=== PATIENT | male | born 1960 | race African-American/Black ===

== ENCOUNTER → 2017-02-12 | Outpatient (CLI) | payer OTHER ==
[~2017-02-12] MED LIST: 'PARAFON FORTE500 M1 PO; CITALOPRAM HYDR20 MG PO; FLEXERIL10 MG PO; GLYBURIDE5 MG PO; JANUMET 500 MG-1 TA1 PO; LISINOPRIL-HCTZ 20-2; LOW DOSE ASPIRI81 MG PO; MEDROL DOSEPAK4 MG PO; MOTRIN800 MG PO; NAPROSYN500 MG PO; NICOTINE T21 MG/24 H TD; PEN-VEE K500 MG PO; PRAVASTATIN SOD40 MG PO; PREDNISONE10 MG PO; ULTRAM50 MG PO
[2017-02-12 08:20] LABS: BASO % 0.5 % (0.0-1.0); EOS # 0.1 10*3/uL (0.0-0.4); EOS % 1.1 % (1.0-4.0); HEMATOCRIT 42.9 % (42.0-52.0); HEMOGLOBIN 13.7 g/dl (14.0-18.0); LYMPH # 2.3 10*3/uL (1.3-4.4); LYMPH % 41.2 % (27.0-41.0); MEAN CELL VOLUME 86.7 fl (80.0-94.0); MEAN CORPUSCULAR HGB 27.7 pg (27.0-31.0); MEAN CORPUSCULAR HGB CONC 31.9 g/dl (33.0-37.0); MEAN PLATELET VOLUME 10.8 fl (9.6-12.3); MONO # 0.5 10*3/uL (0.1-1.0); MONO % 9.5 % (3.0-9.0); NEUT # 2.6 10*3/uL (2.3-7.9); NEUT % 47.5 % (47.0-73.0); PLATELET COUNT AUTOMATED 196 10*3/uL (130-400); RED BLOOD COUNT 4.95 10*6/uL (4.50-5.90); RED CELL DISTRI WIDTH 13.6 % (0-14.5); WHITE BLOOD COUNT 5.5 10*3/uL (4.8-10.8)
[2017-02-12 08:54] LABS: ALBUMIN 3.6 gm/dl (3.1-4.5); BUN 21 mg/dl (7-24); CARBON DIOXIDE 23 mmol/L (21-32); CHLORIDE 108 mmol/L (98-107); GLUCOSE 134 mg/dL (65-99); POTASSIUM 4.2 mmol/L (3.5-5.1); SODIUM 142 mmol/L (136-145)
[2017-02-12 09:01] LABS: ALKALINE PHOSPHATASE 68 U/L (45-117); BILIRUBIN, TOTAL 0.4 mg/dl (0.2-1.0); CHOLESTEROL 122 mg/dL (<200); EST GLOM FILT AFRICAN AMERICAN > 60 ml/min; FREE T4 0.94 ng/dl (0.76-1.46); HDL CHOLESTEROL 43 mg/dl (40-60); LDL CHOLESTEROL 57 mg/dL (9-159); SGOT/AST 20 IU/L (3-35); SGPT/ALT 35 U/L (12-78); THYROID STIM HORMONE (HS) 0.664 uIU/ml (0.358-4.75); TOTAL PROTEIN 7.1 gm/dL (6.4-8.2); TRIGLYCERIDES 110 mg/dl (<150); VLDL CHOLESTEROL 22 mg/dL (6-40)
== END | disposition home or self-care (01) ==
LOC: LAB 07:23
PROVIDERS: Family Medicine
DX: E78.5 Hyperlipidemia, unspecified (principal); E55.9 Vitamin D deficiency, unspecified; I10 Essential (primary) hypertension

== ENCOUNTER → 2017-06-18 | Outpatient (CLI) | payer OTHER | END | disposition home or self-care (01) | LOC: RAD 12:22 | DX: M16.11 Unilateral primary osteoarthritis, right hip (principal) ==

== ENCOUNTER 2017-09-25 16:04 | Emergency (ER) | payer OTHER ==
[~2017-09-25] VITALS: Ht 180.3 cm; Wt 84.8 kg
[2017-09-25] MEDS ORDERED: Motrin,Rufen800 MG PO (16:30)
[2017-09-25] MEDS ORDERED: SEPTDS PO (16:30)
[2017-09-25] MEDS ORDERED: CEPHALEXIN500 M1 PO (16:30)
== END 2017-09-25 17:04 | disposition home or self-care (01) ==
LOC: ED 16:04
DX: K61.1 Rectal abscess (principal); F17.200 Nicotine dependence, unspecified, uncomplicated; Z79.899 Other long term (current) drug therapy

== ENCOUNTER 2017-12-05 06:54 | Emergency (ER) | payer OTHER ==
[~2017-12-05] VITALS: Ht 180.3 cm; Wt 84.8 kg
[~2017-12-05 06:54] MED LIST changes: +CEPHALEXIN500 M1 PO; +Motrin,Rufen800 MG PO; +SEPTDS PO
[2017-12-05] MEDS ORDERED: ZESTORETIC 10-1 EACH PO (07:01)
[2017-12-05] MEDS ORDERED: VITAMIN D-32000 UNI1 PO (07:01)
[2017-12-05] MEDS ORDERED: MEDROL DOSEPAK4 MG PO (07:23)
[2017-12-05] MEDS ORDERED: NEURONTIN100 MG PO (07:23)
== END 2017-12-05 14:30 | disposition home or self-care (01) ==
LOC: ED 06:54
DX: G89.29 Other chronic pain (principal); M54.5 Low back pain; Z79.899 Other long term (current) drug therapy

== ENCOUNTER → 2017-12-22 | Outpatient (CLI) | payer OTHER ==
[~2017-12-22] MED LIST changes: +NEURONTIN100 MG PO; +VITAMIN D-32000 UNI1 PO; +ZESTORETIC 10-1 EACH PO
== END | disposition home or self-care (01) ==
LOC: RAD 19:17
DX: M54.5 Low back pain (principal); M25.571 Pain in right ankle and joints of right foot; R53.1 Weakness

== ENCOUNTER 2018-08-28 | Emergency (ER) | payer OTHER ==
[2018-08-28 10:48] LABS: BASO % 0.3 % (0.0-1.0); EOS % 0.4 % (1.0-4.0); HEMATOCRIT 51.2 % (42.0-52.0); HEMOGLOBIN 16.3 g/dl (14.0-18.0); LYMPH # 2.6 10*3/uL (1.3-4.4); LYMPH % 24.5 % (27.0-41.0); MEAN CELL VOLUME 87.8 fl (80.0-94.0); MEAN CORPUSCULAR HGB CONC 31.8 g/dl (33.0-37.0); MEAN PLATELET VOLUME 9.3 fl (9.6-12.3); MONO # 0.7 10*3/uL (0.1-1.0); MONO % 6.8 % (3.0-9.0); NEUT # 7.3 10*3/uL (2.3-7.9); NEUT % 67.7 % (47.0-73.0); PLATELET COUNT AUTOMATED 277 10*3/uL (130-400); RED BLOOD COUNT 5.83 10*6/uL (4.50-5.90); RED CELL DISTRI WIDTH 14.1 % (0-14.5); WHITE BLOOD COUNT 10.7 10*3/uL (4.8-10.8)
[2018-08-28 11:05] LABS: ALBUMIN 4.5 gm/dl (3.1-4.5); ALKALINE PHOSPHATASE 75 U/L (45-117); BUN 17 mg/dl (7-24); CHLORIDE 100 mmol/L (98-107); POTASSIUM 3.7 mmol/L (3.5-5.1); SGOT/AST 12 IU/L (3-35); SGPT/ALT 35 U/L (12-78); SODIUM 133 mmol/L (136-145); TOTAL PROTEIN 8.5 gm/dL (6.4-8.2)
[2018-08-28] MEDS ORDERED: PREDNISONE10 MG PO (12:01)
== END 2018-08-28 12:10 | disposition home or self-care (01) ==
PROVIDERS: Nurse Practitioner Family
DX: R25.2 Cramp and spasm (principal); R03.0 Elevated blood-pressure reading, without diagnosis of hypertension; G89.29 Other chronic pain; Z79.899 Other long term (current) drug therapy

== ENCOUNTER 2019-03-09 22:03 | Emergency (ER) | payer OTHER ==
[~2019-03-09] VITALS: Ht 180.3 cm; Wt 84.8 kg
[2019-03-10] MEDS ORDERED: CYCLOBENZAPRINE10 MG PO (00:17)
[2019-03-10] MEDS ORDERED: NAPROSYN500 MG PO (00:17)
== END 2019-03-10 00:25 | disposition home or self-care (01) ==
LOC: ED 22:03
DX: M54.12 Radiculopathy, cervical region (principal); F17.200 Nicotine dependence, unspecified, uncomplicated; Z79.899 Other long term (current) drug therapy

== ENCOUNTER 2019-08-18 06:52 | Emergency (ER) | payer OTHER ==
[~2019-08-18] VITALS: Ht 180.3 cm; Wt 80.7 kg
[~2019-08-18 06:52] MED LIST changes: +CYCLOBENZAPRINE10 MG PO
[2019-08-18] MEDS ORDERED: NAPROSYN500 MG PO (09:11)
== END 2019-08-18 09:25 | disposition home or self-care (01) ==
LOC: ED 06:52
DX: S66.911A Strain of unspecified muscle, fascia and tendon at wrist and hand level, right hand, initial encounter (principal); I10 Essential (primary) hypertension; E78.00 Pure hypercholesterolemia, unspecified; X58.XXXA Exposure to other specified factors, initial encounter; Y93.89 Activity, other specified; Y92.89 Other specified places as the place of occurrence of the external cause; Y99.8 Other external cause status

== ENCOUNTER 2019-09-07 16:11 | Inpatient (IN) | payer OTHER ==
[~2019-09-07] VITALS: Ht 180.3 cm; Wt 77.6 kg
[2019-09-07 16:22] VITALS: BP 136/91
[2019-09-07 17:18] LABS: BASO % 0.4 % (0.0-1.0); EOS # 0.1 10*3/uL (0.0-0.4); EOS % 0.7 % (1.0-4.0); HEMATOCRIT 47.8 % (42.0-52.0); HEMOGLOBIN 15.5 g/dl (14.0-18.0); LYMPH % 26.7 % (27.0-41.0); MEAN CELL VOLUME 87.2 fl (80.0-94.0); MEAN CORPUSCULAR HGB 28.3 pg (27.0-31.0); MEAN CORPUSCULAR HGB CONC 32.4 g/dl (33.0-37.0); MONO # 0.6 10*3/uL (0.1-1.0); MONO % 7.7 % (3.0-9.0); NEUT # 4.9 10*3/uL (2.3-7.9); NEUT % 64.2 % (47.0-73.0); PLATELET COUNT AUTOMATED 244 10*3/uL (130-400); RED BLOOD COUNT 5.48 10*6/uL (4.50-5.90); RED CELL DISTRI WIDTH 12.4 % (0-14.5); WHITE BLOOD COUNT 7.6 10*3/uL (4.8-10.8)
[2019-09-07 17:29] LABS: ACT PARTIAL THROMBO TIME 25.6 SECONDS (20.0-32.1); INTERNATIONAL NORM RATIO 0.9 (2.0-3.5)
[2019-09-07 17:36] LABS: ALKALINE PHOSPHATASE 93 U/L (45-117); BUN 22 mg/dl (7-24); CHLORIDE 103 mmol/L (98-107); CREATININE 1.44 mg/dL (0.70-1.30); POTASSIUM 5.1 mmol/L (3.5-5.1); SGOT/AST 17 IU/L (3-35); SGPT/ALT 32 U/L (12-78); SODIUM 135 mmol/L (136-145); TOTAL PROTEIN 7.8 gm/dL (6.4-8.2)
[2019-09-07 17:40] LABS: TROPONIN I < 0.015 ng/ml (<0.045)
[2019-09-07 18:00] VITALS: BP 134/80
--- NOTE | 2019-09-07 18:48 | NUR ---
PT PROVIDED WITH MEAL TRAY.
[2019-09-07 19:09] VITALS: BP 134/82
[2019-09-07 19:24] LABS: BILIRUBIN NEGATIVE (NEGATIVE); BLOOD NEGATIVE (NEGATIVE); CLARITY CLEAR (CLEAR); COLOR YELLOW (YELLOW); GLUCOSE 3+ (NEGATIVE); KETONE 1+ (NEGATIVE); LEUKO ESTERASE NEGATIVE (NEGATIVE); NITRITE NEGATIVE (NEGATIVE); PH 5.5 (5.0-9.0); UROBILINOGEN 0.2 E.U./dl (0.2-1.0)
[2019-09-07 19:29] VITALS: BP 111/84
--- NOTE | 2019-09-07 19:29 | NUR ---
A 58, admitted to 4E, under the services of Dr. MATTI GRAY,SELENA Gutierrez with a diagnosis of DEHYDRATION, DKA. Chief complaint is DMUSCLE CRAMPS. Patient arrived via stretcher from ER. Monitor applied. Initial assessment completed. Vital signs taken and recorded. DR. MATTI GRAY,SELENA Gutierrez notified of admission to the unit. Orders received. See assessment for past medical history, medications and allergies. Patient and/or family oriented to unit. [facility] visitation policy reviewed. Clothing/patient valuable form completed. MICAELA CASTAÑEDA
[2019-09-07 19:37] LABS: EPITHELIAL CELLS 0-2
--- NOTE | 2019-09-07 23:00 | NUR ---
ASSUMED CARE FOR THIS PT AT THIS TIME. PT C/O TENDERNESS TO UMBILICAL AREA. REDDENED AREA W/WHITE [place] HEAD NOTED IN CENTER. AREA EDEMATOUS W/ERYTHEMIA NOTED. WILL NOTIFIY . PT DENIES ANY S/S OF HYPERGYLCEMIA. CALL LIGHT IN REACH.
[2019-09-08] VITALS: BP 125/80
--- NOTE | 2019-09-08 00:30 | NUR ---
PT MEDICATED W/15 UNITS OF REGULAR INSULIN FOR BS OF 412 AT THIS TIME.
--- NOTE | 2019-09-08 06:03 | NUR ---
PT MEDICATED W/NORCO FOR C/O BLE CRAMPING. CALL LIGHT IN REACH.
[2019-09-08 08:00] VITALS: BP 104/60
--- NOTE | 2019-09-08 10:17 | NUR ---
Supply Chain Analyst in to talk to patient. Patient states lives at HOME with SISTER AND MOTHER. There are NO steps in the home. Physician: DR ESPINOSA [facility] Home health services: NONE Patient's level of ADLs: INDEPENDENT Patient has working utilities: YES DME: NONE Follow-up physician's appointment after d/c: PREFERS TO MAKE OWN ON DISCHARGE Does patient want to access PORTAL?: NO Discharge plan PT LIVES AT HOME WITH HIS SISTER AND MOTHER AND IS INDEPENDENT IN HIS CARE. DENIES HE WILL HAVE ANY NEEDS ON DISCHARG. PLANS ARE TO RETURN HOME WHEN MEDICALLY STABLE. WILL CONTINUE TO FOLLOW. WILL HAVE A RIDE HOME PER PT.. RAMESH KINNEY
[2019-09-08 12:00] VITALS: BP 136/9
--- NOTE | 2019-09-08 14:35 | NUR ---
Dr. Resendiz notified of elevated bsg of 358 and 382.
[2019-09-08 16:00] VITALS: BP 138/90
--- NOTE | 2019-09-08 17:12 | NUR ---
Dr. Resendiz notified of elevated HR in 120's. is here rounding now.
--- NOTE | 2019-09-08 17:55 | NUR ---
Dr. Resendiz notified of bsg of 350.
--- NOTE | 2019-09-08 19:10 | NUR ---
ARRIVED ON SHIFT, INTRODUCED TO PATIENT, NO NEEDS VOICED, WHITE BOARD UPDATED, BED IN LOW POSITION, CALL LIGHT WITHIN REACH.
[2019-09-08 20:00] VITALS: BP 138/92
--- NOTE | 2019-09-08 21:07 | NUR ---
PATIENT C/O BILATERAL LE PAIN/CRAMPING, MEDICATED WIH NORCO ORDERED.
--- NOTE | 2019-09-08 22:07 | NUR ---
PATIENT REPORTS A DECREASE IN PAIN IN LE FROM 6/10 TO 3/10.
--- NOTE | 2019-09-08 22:34 | NUR ---
24 HR chart check completed.
[2019-09-09] VITALS: BP 127/83
[2019-09-09 07:03] LABS: BASO % 0.5 % (0.0-1.0); EOS # 0.1 10*3/uL (0.0-0.4); EOS % 1.3 % (1.0-4.0); HEMOGLOBIN 13.5 g/dl (14.0-18.0); LYMPH # 2.1 10*3/uL (1.3-4.4); LYMPH % 34.4 % (27.0-41.0); MEAN CELL VOLUME 85.9 fl (80.0-94.0); MEAN CORPUSCULAR HGB 27.6 pg (27.0-31.0); MEAN CORPUSCULAR HGB CONC 32.1 g/dl (33.0-37.0); MEAN PLATELET VOLUME 11.3 fl (9.6-12.3); MONO # 0.5 10*3/uL (0.1-1.0); MONO % 8.6 % (3.0-9.0); NEUT # 3.4 10*3/uL (2.3-7.9); PLATELET COUNT AUTOMATED 219 10*3/uL (130-400); RED BLOOD COUNT 4.89 10*6/uL (4.50-5.90); RED CELL DISTRI WIDTH 12.6 % (0-14.5); WHITE BLOOD COUNT 6.2 10*3/uL (4.8-10.8)
[2019-09-09 07:12] LABS: BUN 20 mg/dl (7-24); CHLORIDE 109 mmol/L (98-107); CREATININE 0.95 mg/dL (0.70-1.30); SODIUM 138 mmol/L (136-145)
[2019-09-09 07:14] LABS: POTASSIUM 3.7 mmol/L (3.5-5.1)
[2019-09-09 08:00] VITALS: BP 132/90
[2019-09-09 12:00] VITALS: BP 151/85
[2019-09-09 16:00] VITALS: BP 121/82
--- NOTE | 2019-09-09 17:00 | NUR ---
PT RESTING IN BED. RESP-EASY AND REGULAR. BSG-[id number], SEE EMAR. NO C/O AT THIS TIME. CALL LIGHT IN REACH. SEE SHIFT ASSESSMENT.
[2019-09-09 20:00] VITALS: BP 134/78
[2019-09-10] VITALS: BP 138/68
--- NOTE | 2019-09-10 02:41 | NUR ---
IV discontinued. Site asymptomatic. Pressure applied. Sterile dressing applied. NEW SITE TO LT HAND 22. PT TOLERATED WELL. IVF AT 60/HR. JEANNE MCDUFFIE
[2019-09-10 06:23] LABS: BASO % 0.7 % (0.0-1.0); EOS # 0.1 10*3/uL (0.0-0.4); HEMATOCRIT 41.9 % (42.0-52.0); HEMOGLOBIN 13.5 g/dl (14.0-18.0); LYMPH # 1.9 10*3/uL (1.3-4.4); LYMPH % 32.3 % (27.0-41.0); MEAN CELL VOLUME 86.4 fl (80.0-94.0); MEAN CORPUSCULAR HGB 27.8 pg (27.0-31.0); MEAN CORPUSCULAR HGB CONC 32.2 g/dl (33.0-37.0); MEAN PLATELET VOLUME 10.9 fl (9.6-12.3); MONO # 0.5 10*3/uL (0.1-1.0); MONO % 7.5 % (3.0-9.0); NEUT # 3.5 10*3/uL (2.3-7.9); NEUT % 58.3 % (47.0-73.0); PLATELET COUNT AUTOMATED 246 10*3/uL (130-400); RED BLOOD COUNT 4.85 10*6/uL (4.50-5.90); RED CELL DISTRI WIDTH 12.5 % (0-14.5)
[2019-09-10 06:41] LABS: BUN 16 mg/dl (7-24); CHLORIDE 107 mmol/L (98-107); CREATININE 1.02 mg/dL (0.70-1.30); SODIUM 138 mmol/L (136-145)
[2019-09-10 08:00] VITALS: BP 126/85
--- NOTE | 2019-09-10 08:22 | NUR ---
PT. IS SITTING UP CHAIR AWAITNG BREAKFAST, NO COMPLAINS OF PAIN AT THIS TIME, VERY COOPERATIVE. ARIANA SEPULVEDA SPNRCC
--- NOTE | 2019-09-10 08:30 | NUR ---
PT SITTING UP IN CHAIR WAITING FOR BREAKFAST. RESP-EASY AND REGULAR. IVF INFUSING WITH NO PROBLEM. NO C/O AT THIS TIME. CALL LIGHT IN REACH. STUDENT NURSES WITH PT TODAY ALSO.
--- NOTE | 2019-09-10 09:00 | NUR ---
Infertility Nurse in to see patient. Discussed home needs upon discharge and he denies any home needs. When medically stable he will be discharged to home. Discussed discharge planning with Dr. Resendiz. Plan is to discharge patient today.
--- NOTE | 2019-09-10 10:43 | NUR ---
PT. IS COOPERATIVE DENIES PAIN AT THIS TIME, LAYING COMFORTABLE IN BED. ARIANA SEPULVEDA SPNRCC
--- NOTE | 2019-09-10 11:42 | NUR ---
Nutritional Support Services Note: Instructed pt on diabetic diet. Diet copy given to pt. Stressed importance of diet and need for compliance to diet and meds. Pt listened and stated he has been ignoring the signs and symptons. Pt will be more compliant to diet and medication. Encouraged healthy eating habits. Encouraged follow up if needed. Cindy Courtney Rdn Ld
[2019-09-10 12:32] VITALS: BP 117/67
--- NOTE | 2019-09-10 12:43 | NUR ---
PT. IS SITTING UP IN BED EATING LUNCH, DENIES ANY DISCOMFORT OR PAIN AT THIS TIME. ARIANA SEPULVEDA SPCC
[2019-09-10] MEDS ORDERED: GLIMEPIRIDE4 M1 PO (13:32)
[2019-09-10] MEDS ORDERED: GLUCOPHAGE500 MG PO (13:32)
--- NOTE | 2019-09-10 13:47 | NUR ---
IV SITE D/C'D, IV SITE ASYMPTOMATIC ARIANA SEPULVEDA SPROSLYNCC
--- NOTE | 2019-09-10 15:10 | NUR ---
Discharge instructions reviewed with patient/family. Patient receptive and verbalizes understanding. Follow-up care arranged. Written instructions given to patient/family. HEPLOCK REMOVED 2X2 APPLIED. HOLTER REMOVED. AMBULATORY OFF THE FLOOR WITH VISITOR. EUSEBIO PARKER
== END 2019-09-10 15:27 | disposition home or self-care (01) | DRG 422 ==
LOC: ED 16:11 → EDHOLD 18:19 → 4E 18:19
PROVIDERS: Emergency Medicine; ADMIT Internal Medicine
DX: E86.0 Dehydration (principal); N17.0 Acute kidney failure with tubular necrosis; E11.65 Type 2 diabetes mellitus with hyperglycemia; E11.21 Type 2 diabetes mellitus with diabetic nephropathy; I10 Essential (primary) hypertension; E55.9 Vitamin D deficiency, unspecified; E78.2 Mixed hyperlipidemia; G89.29 Other chronic pain; M54.5 Low back pain

== ENCOUNTER 2020-02-05 06:59 | Emergency (ER) | payer OTHER ==
[~2020-02-05] VITALS: Ht 180.3 cm; Wt 83.0 kg
[~2020-02-05 06:59] MED LIST changes: +GLIMEPIRIDE4 M1 PO; +GLUCOPHAGE500 MG PO
== END 2020-02-05 09:38 | disposition short-term general hospital (02) ==
LOC: ED 06:59
DX: S60.552A Superficial foreign body of left hand, initial encounter (principal); I10 Essential (primary) hypertension; E11.9 Type 2 diabetes mellitus without complications; E78.00 Pure hypercholesterolemia, unspecified; Z79.899 Other long term (current) drug therapy; W01.0XXA Fall on same level from slipping, tripping and stumbling without subsequent striking against object, initial encounter; Y93.89 Activity, other specified; Y92.89 Other specified places as the place of occurrence of the external cause; Y99.8 Other external cause status

== ENCOUNTER → 2020-09-08 | Outpatient (CLI) | payer OTHER | END | disposition home or self-care (01) | LOC: RAD 12:08 | PROVIDERS: ATTEND Family Medicine | DX: M47.22 Other spondylosis with radiculopathy, cervical region (principal) ==

== ENCOUNTER 2020-12-20 11:14 | Emergency (ER) | payer OTHER ==
[~2020-12-20] VITALS: Ht 180.3 cm; Wt 83.0 kg
[2020-12-20] MEDS ORDERED: TYLENOL325 M1 PO (12:25)
[2020-12-20] MEDS ORDERED: NAPROXEN250 MG PO (12:25)
[2020-12-20] MEDS ORDERED: CYCLOBENZAPRINE10 MG PO (12:25)
== END 2020-12-20 13:07 | disposition home or self-care (01) ==
LOC: ED 11:14
DX: M54.9 Dorsalgia, unspecified (principal); F17.200 Nicotine dependence, unspecified, uncomplicated; Z79.899 Other long term (current) drug therapy

== ENCOUNTER 2021-04-11 07:50 | Emergency (ER) | payer OTHER ==
[~2021-04-11] VITALS: Ht 180.3 cm; Wt 83.9 kg
[~2021-04-11 07:50] MED LIST changes: +NAPROXEN250 MG PO; +TYLENOL325 M1 PO
[2021-04-11] MEDS ORDERED: VITAMIN D3125 MCG PO (08:02)
[2021-04-11] MEDS ORDERED: JANUVIA100 MG PO (08:02)
[2021-04-11] MEDS ORDERED: METFORMIN HYDR500 MG PO (08:03)
== END 2021-04-11 08:40 | disposition home or self-care (01) ==
LOC: ED 07:50
DX: M25.512 Pain in left shoulder (principal); R11.10 Vomiting, unspecified; Z79.899 Other long term (current) drug therapy

== ENCOUNTER → 2021-04-21 | Outpatient (CLI) | payer OTHER ==
[~2021-04-21] MED LIST changes: +JANUVIA100 MG PO; +METFORMIN HYDR500 MG PO; +VITAMIN D3125 MCG PO
== END | disposition home or self-care (01) ==
LOC: RAD 12:41
PROVIDERS: ATTEND Internal Medicine
DX: M19.012 Primary osteoarthritis, left shoulder (principal); M19.011 Primary osteoarthritis, right shoulder

== ENCOUNTER 2021-08-20 11:54 | Emergency (ER) | payer OTHER ==
[~2021-08-20] VITALS: Ht 180.3 cm; Wt 80.7 kg
[2021-08-20] MEDS ORDERED: ULTRAM50 MG PO (14:19)
[2021-08-20] MEDS ORDERED: BRACE MC (14:27)
== END 2021-08-20 14:41 | disposition home or self-care (01) ==
LOC: ED 11:54
DX: M77.8 Other enthesopathies, not elsewhere classified (principal)

== ENCOUNTER 2022-01-02 10:17 | Emergency (ER) | payer OTHER ==
[~2022-01-02] VITALS: Ht 180.3 cm; Wt 81.6 kg
[~2022-01-02 10:17] MED LIST changes: +BRACE MC
[2022-01-02] MEDS ORDERED: PREDNISONE50 MG PO (10:50)
== END 2022-01-02 10:54 | disposition home or self-care (01) ==
LOC: ED 10:17
DX: M13.831 Other specified arthritis, right wrist (principal); Z79.899 Other long term (current) drug therapy

== ENCOUNTER → 2022-02-08 | Outpatient (CLI) | payer OTHER ==
[~2022-02-08] MED LIST changes: +PREDNISONE50 MG PO
[2022-02-08 15:49] LABS: BASO % 0.6 % (0.0-1.0); EOS % 0.6 % (1.0-4.0); HEMATOCRIT 43.8 % (42.0-52.0); LYMPH # 2.1 10*3/uL (1.3-4.4); LYMPH % 32.6 % (27.0-41.0); MEAN CELL VOLUME 87.3 fl (80.0-94.0); MEAN CORPUSCULAR HGB 28.7 pg (27.0-31.0); MEAN CORPUSCULAR HGB CONC 32.9 g/dl (33.0-37.0); MEAN PLATELET VOLUME 9.7 fl (9.6-12.3); MONO # 0.6 10*3/uL (0.1-1.0); NEUT # 3.6 10*3/uL (2.3-7.9); PLATELET COUNT AUTOMATED 278 10*3/uL (130-400); RED BLOOD COUNT 5.02 10*6/uL (4.50-5.90); RED CELL DISTRI WIDTH 14.6 % (0-14.5); WHITE BLOOD COUNT 6.4 10*3/uL (4.8-10.8)
[2022-02-10 22:06] LABS: FREE PSA 0.529 ng/mL (.)
== END | disposition home or self-care (01) ==
LOC: LAB 15:29
PROVIDERS: ATTEND Internal Medicine
DX: E83.52 Hypercalcemia (principal); R53.83 Other fatigue

== ENCOUNTER 2022-03-11 10:30 | Emergency (ER) | payer OTHER | END 2022-03-11 13:20 | disposition home or self-care (01) | LOC: ED 10:30 | DX: M25.512 Pain in left shoulder (principal); Z79.899 Other long term (current) drug therapy; F17.200 Nicotine dependence, unspecified, uncomplicated ==

== ENCOUNTER 2022-05-08 12:39 | Emergency (ER) | payer OTHER ==
[~2022-05-08] VITALS: Ht 170.1 cm; Wt 78.5 kg
[2022-05-08 13:21] LABS: BILIRUBIN Negative (Negative); BLOOD 2+ (Negative); CLARITY Cloudy (Clear); COLOR Dark Yellow (Yellow); GLUCOSE 2+ (Negative); KETONE Trace (Negative); LEUKO ESTERASE 2+ (Negative); NITRITE Negative (Negative); PH 5.5 (4.5-8.0); SPECIFIC GRAVITY 1.025 (1.001-1.030)
[2022-05-08 13:34] LABS: BACTERIA 2+; RBC TNTC rbc/hpf (0-2); WBC TNTC wbc/hpf (0-5)
[2022-05-08 13:44] LABS: BASO % 0.2 % (0.0-1.0); EOS % 0.1 % (1.0-4.0); HEMATOCRIT 45.8 % (42.0-52.0); LYMPH # 1.3 10*3/uL (1.3-4.4); LYMPH % 7.5 % (27.0-41.0); MEAN CELL VOLUME 88.6 fl (80.0-94.0); MEAN CORPUSCULAR HGB 28.8 pg (27.0-31.0); MEAN CORPUSCULAR HGB CONC 32.5 g/dl (33.0-37.0); MEAN PLATELET VOLUME 9.9 fl (9.6-12.3); MONO # 1.1 10*3/uL (0.1-1.0); MONO % 6.4 % (3.0-9.0); NEUT # 15.1 10*3/uL (2.3-7.9); NEUT % 85.4 % (47.0-73.0); PLATELET COUNT AUTOMATED 151 10*3/uL (130-400); RED BLOOD COUNT 5.17 10*6/uL (4.50-5.90); RED CELL DISTRI WIDTH 13.8 % (0-14.5); WHITE BLOOD COUNT 17.7 10*3/uL (4.8-10.8)
[2022-05-08 14:06] LABS: ALKALINE PHOSPHATASE 64 U/L (45-117); BUN 12 mg/dl (7-24); CHLORIDE 110 mmol/L (98-107); CREATININE 1.25 mg/dL (0.70-1.30); POTASSIUM 4.4 mmol/L (3.5-5.1); SGOT/AST 13 IU/L (3-35); SGPT/ALT 31 U/L (12-78); SODIUM 138 mmol/L (136-145); TOTAL PROTEIN 7.3 gm/dL (6.4-8.2)
[2022-05-08] MEDS ORDERED: CEFUROXIME AXE500 MG PO (15:33)
== END 2022-05-08 17:36 | disposition left against medical advice (07) ==
LOC: ED 12:39
PROVIDERS: Nurse Practitioner Family
DX: N39.0 Urinary tract infection, site not specified (principal); E86.0 Dehydration; E11.9 Type 2 diabetes mellitus without complications; I10 Essential (primary) hypertension; E78.5 Hyperlipidemia, unspecified; F17.200 Nicotine dependence, unspecified, uncomplicated; Z79.899 Other long term (current) drug therapy

== ENCOUNTER → 2022-05-15 | Outpatient (CLI) | payer OTHER ==
[~2022-05-15] MED LIST changes: +CEFUROXIME AXE500 MG PO
== END | disposition home or self-care (01) ==
LOC: US 08:30
PROVIDERS: ATTEND Nurse Practitioner Family
DX: N28.1 Cyst of kidney, acquired (principal); N39.0 Urinary tract infection, site not specified; R10.9 Unspecified abdominal pain

== ENCOUNTER 2022-10-22 11:28 | Emergency (ER) | payer OTHER ==
[~2022-10-22] VITALS: Ht 180.3 cm; Wt 76.2 kg
[2022-10-22 15:09] LABS: BASO % 0.5 % (0.0-1.0); EOS # 0.1 10*3/uL (0.0-0.4); EOS % 0.8 % (1.0-4.0); HEMATOCRIT 51.4 % (42.0-52.0); LYMPH # 2.4 10*3/uL (1.3-4.4); LYMPH % 31.9 % (27.0-41.0); MEAN CELL VOLUME 88.2 fl (80.0-94.0); MEAN CORPUSCULAR HGB 28.5 pg (27.0-31.0); MEAN CORPUSCULAR HGB CONC 32.3 g/dl (33.0-37.0); MEAN PLATELET VOLUME 9.7 fl (9.6-12.3); MONO # 0.5 10*3/uL (0.1-1.0); NEUT # 4.4 10*3/uL (2.3-7.9); NEUT % 59.7 % (47.0-73.0); PLATELET COUNT AUTOMATED 242 10*3/uL (130-400); RED BLOOD COUNT 5.83 10*6/uL (4.50-5.90); RED CELL DISTRI WIDTH 13.4 % (0-14.5); WHITE BLOOD COUNT 7.5 10*3/uL (4.8-10.8)
[2022-10-22 15:29] LABS: ALKALINE PHOSPHATASE 63 U/L (46-116); BUN 9 mg/dl (9-23); CHLORIDE 104 mmol/L (98-107); SGPT/ALT 23 U/L (10-49); TOTAL PROTEIN 7.9 gm/dL (6.0-8.0)
== END 2022-10-22 17:49 | disposition home or self-care (01) ==
LOC: ED 11:28
PROVIDERS: Emergency Medicine
DX: I77.9 Disorder of arteries and arterioles, unspecified (principal); Z79.899 Other long term (current) drug therapy

== ENCOUNTER 2022-11-23 11:54 | Emergency (ER) | payer OTHER ==
[~2022-11-23] VITALS: Ht 152.4 cm; Wt 75.3 kg
== END 2022-11-23 13:43 | disposition home or self-care (01) ==
LOC: ED 11:54
DX: I73.9 Peripheral vascular disease, unspecified (principal); E11.9 Type 2 diabetes mellitus without complications; E78.00 Pure hypercholesterolemia, unspecified; I10 Essential (primary) hypertension

== ENCOUNTER → 2022-12-03 | Outpatient (CLI) | payer OTHER ==
[2022-12-03 14:06] LABS: BUN 9 mg/dl (9-23)
== END | disposition home or self-care (01) ==
LOC: LAB 12:38
DX: I70.213 Atherosclerosis of native arteries of extremities with intermittent claudication, bilateral legs (principal)

== ENCOUNTER → 2024-03-20 | Outpatient (CLI) | payer OTHER ==
[2024-03-20 16:34] LABS: BUN 11 mg/dl (9-23); CHLORIDE 111 mmol/L (98-107); POTASSIUM 3.8 mmol/L (3.4-5.1)
== END | disposition home or self-care (01) ==
LOC: LAB 15:47
PROVIDERS: ATTEND Internal Medicine
DX: E11.9 Type 2 diabetes mellitus without complications (principal)

== ENCOUNTER → 2024-11-27 | Outpatient (CLI) | payer OTHER | END | disposition home or self-care (01) | LOC: US 01:41 | PROVIDERS: ATTEND Internal Medicine | DX: N28.1 Cyst of kidney, acquired (principal); N18.31 Chronic kidney disease, stage 3a ==

== ENCOUNTER → 2025-08-26 | Outpatient (CLI) | payer OTHER | END | disposition home or self-care (01) | LOC: LAB 15:31 | PROVIDERS: ATTEND Internal Medicine | DX: Z12.5 Encounter for screening for malignant neoplasm of prostate (principal) ==